=== PATIENT | female | born 1975 | race Two or more races ===

== ENCOUNTER 2017-04-30 03:51 | Emergency (ER) | payer MEDICAID ==
[~2017-04-30] VITALS: Ht 149.9 cm; Wt 85.7 kg
[2017-04-30 03:58] VITALS: BP 135/78
== END 2017-04-30 04:54 | disposition home or self-care (01) ==
LOC: ER 03:56
DX: R10.2 Pelvic and perineal pain (principal)

== ENCOUNTER 2018-03-16 17:59 | Inpatient (IN) | payer MEDICAID ==
[~2018-03-16] VITALS: Ht 152.4 cm; Wt 106.3 kg
[2018-03-16] MEDS ORDERED: SODIUM CHLORIDE 0.9% 500 ML IVB ONE (18:39)
[2018-03-16] MEDS ORDERED: KETOROLAC TROMETH 30 MG/ML 1ML VIAL IV ONE (18:45)
[2018-03-16 19:18] LABS: Basophils # (auto) 0 uL; Basophils % (auto) 0.3 % (0.0-2.0); Eosinophils # (auto) 0.1 uL; Mean Corpuscular Hgb Conc. 33.2 g/dL (32.0-36.0); White Blood Cell 10.7 10^3/uL (4.4-10.8)
[2018-03-16 19:20] LABS: Eosinophils % (auto) 1.3 % (0.0-7.0); Hematocrit 39.1 % (36.0-46.0); Lymphocytes # (auto) 1.3 uL; Lymphocytes % (auto) 12.1 % (10.0-50.0); Mean Corpuscular Hemoglobin 25.5 pg (28.0-32.0); Mean Corpuscular Volume 76.7 fL (80.0-100.0); Monocytes # (auto) 0.7 uL; Monocytes % (auto) 6.5 % (0.0-12.0); Neutrophils # (auto) 8.5 uL; Neutrophils % (auto) 79.8 % (37.0-80.0); Platelet Count (auto) 363 10^3/uL (140-450); Red Cell Distribution Width 18.2 % (11.8-14.3)
[2018-03-16 19:40] LABS: BUN/Creatinine Ratio 15.5; Bilirubin, Total 0.3 mg/dL (0.2-1.0); Calcium 9.3 mg/dL (8.5-10.1); Total Protein 7.9 g/dL (6.4-8.2)
[2018-03-16] MEDS ORDERED: NALBUPHINE HCL 10 MG/1ml INJECTION IV ONE (22:00)
[2018-03-16] MEDS ORDERED: ONDANSETRON HCL 4 MG/2 ML VIAL IV ONE (22:00)
[2018-03-16] MEDS ORDERED: ACETAMINOPHEN 325 MG TAB PO PRN (23:15)
[2018-03-16] MEDS ORDERED: PANTOPRAZOLE 40 MG/10 ML VIAL IV ONE (23:15)
[2018-03-16] MEDS ORDERED: cefTRIAXone 1GM/10ml IVPUSH 10 ML IV ONE (23:15)
[2018-03-17] VITALS (8 sets, daily range): BP systolic 133–161; BP diastolic 69–95
[2018-03-17] MEDS: HYDROcodone-ACET 5/325MG TAB PO PRN ×2 (01:00→08:29)
[2018-03-17] MEDS: ONDANSETRON HCL 4 MG/2 ML VIAL IV PRN ×2 (01:10→02:31)
[2018-03-17 01:49] LABS: Urine Bacteria FEW /hpf (None Seen); Urine Blood 3+ /uL (Negative); Urine Mucus FEW (None Seen); Urine Specific Gravity 1.019 (1.001-1.035); Urine WBC 23 /hpf (0 - 5)
[2018-03-17] MEDS: SODIUM CHLORIDE 0.9% 1,000 ML IV SCH ×2 (02:30→15:51)
[2018-03-17] MEDS: NALBUPHINE HCL 10 MG/1ml INJECTION IV PRN ×4 (02:31→22:51)
[2018-03-17 05:18] LABS: Basophils # (auto) 0 uL; Basophils % (auto) 0.3 % (0.0-2.0); Hemoglobin 12.1 g/dL (12.2-16.2); Monocytes # (auto) 0.6 uL; Neutrophils # (auto) 6.8 uL
[2018-03-17 05:21] LABS: Eosinophils # (auto) 0.2 uL; Eosinophils % (auto) 1.7 % (0.0-7.0); Hematocrit 36.1 % (36.0-46.0); Lymphocytes # (auto) 1.5 uL; Lymphocytes % (auto) 16.3 % (10.0-50.0); Mean Corpuscular Hemoglobin 25.7 pg (28.0-32.0); Mean Corpuscular Hgb Conc. 33.5 g/dL (32.0-36.0); Mean Corpuscular Volume 76.8 fL (80.0-100.0); Monocytes % (auto) 6.7 % (0.0-12.0); Platelet Count (auto) 298 10^3/uL (140-450); Red Blood Cells 4.69 10^6/uL (4.0-5.20); Red Cell Distribution Width 18.1 % (11.8-14.3)
[2018-03-17 05:44] LABS: Calcium 8.1 mg/dL (8.5-10.1); Potassium 3.8 mmol/L (3.5-5.1)
[2018-03-17 05:48] LABS: Albumin 2.6 g/dL (3.4-5.0); BUN/Creatinine Ratio 18.2
[2018-03-17 05:50] LABS: Bilirubin, Total 0.7 mg/dL (0.2-1.0); Total Protein 6.6 g/dL (6.4-8.2)
[2018-03-17] MEDS: cefTRIAXone 1GM/10ml IVPUSH 10 ML IV SCH (08:30)
[2018-03-17] MEDS: PANTOPRAZOLE 40 MG/10 ML VIAL IV SCH (09:47)
[2018-03-17] MEDS ORDERED: GASTROGRAFIN 30 ML SOL ONE (13:53)
[2018-03-17] MEDS ORDERED: IOHEXOL 300 MG/ML 75ml BOTTLE IJ ONE (17:35)
[2018-03-18 05:00] VITALS: BP_SYST 108; BP_SYST 133; BP_DIAS 78; BP_DIAS 90
[2018-03-18 08:28] VITALS: BP 124/83
[2018-03-18] MEDS: SODIUM CHLORIDE 0.9% 1,000 ML IV SCH (09:18)
[2018-03-18] MEDS: PANTOPRAZOLE 40 MG/10 ML VIAL IV SCH (09:19)
[2018-03-18] MEDS: cefTRIAXone 1GM/10ml IVPUSH 10 ML IV SCH (09:19)
[2018-03-18] MEDS: NALBUPHINE HCL 10 MG/1ml INJECTION IV PRN ×2 (09:22→16:05)
[2018-03-18] MEDS ORDERED: metroNIDAZOLE 500 MG TAB PO ONE (11:00)
[2018-03-18 12:58] VITALS: BP 138/78
[2018-03-18] MEDS: CIPROFLOXACIN HCL 500 MG TAB PO SCH ×2 (13:31→22:09)
[2018-03-18 17:00] VITALS: BP 139/82
[2018-03-18] MEDS: HYDROcodone-ACET 5/325MG TAB PO PRN (20:16)
[2018-03-18 22:00] VITALS: BP 143/71
[2018-03-18] MEDS: TEMAZEPAM 15 MG CAP PO PRN (22:09)
[2018-03-18] MEDS: metroNIDAZOLE 500 MG TAB PO SCH (22:09)
[2018-03-19] MEDS: SODIUM CHLORIDE 0.9% 1,000 ML IV SCH ×2 (01:30→17:51)
[2018-03-19] MEDS: NALBUPHINE HCL 10 MG/1ml INJECTION IV PRN ×3 (04:33→21:25)
[2018-03-19 06:12] VITALS: BP 131/74
[2018-03-19] MEDS: metroNIDAZOLE 500 MG TAB PO SCH ×3 (06:36→21:35)
[2018-03-19 09:00] VITALS: BP 125/75
[2018-03-19] MEDS: PANTOPRAZOLE 40 MG/10 ML VIAL IV SCH (09:13)
[2018-03-19] MEDS: CIPROFLOXACIN HCL 500 MG TAB PO SCH ×2 (09:13→21:35)
[2018-03-19 13:00] VITALS: BP 130/85
[2018-03-19 17:15] VITALS: BP 136/86
[2018-03-19] MEDS: TEMAZEPAM 15 MG CAP PO PRN (21:44)
[2018-03-19 22:00] VITALS: BP 125/52
[2018-03-20] MEDS: NALBUPHINE HCL 10 MG/1ml INJECTION IV PRN (04:59)
[2018-03-20 05:00] VITALS: BP 115/82
[2018-03-20] MEDS: metroNIDAZOLE 500 MG TAB PO SCH (05:02)
[2018-03-20] MEDS ORDERED: IBUPROFEN 600 MG TAB PO PRN (07:30)
[2018-03-20 08:00] VITALS: BP 127/77
[2018-03-20 09:00] VITALS: BP 127/77
[2018-03-20] MEDS: CIPROFLOXACIN HCL 500 MG TAB PO SCH (09:56)
[2018-03-20] MEDS: PANTOPRAZOLE 40 MG/10 ML VIAL IV SCH (09:56)
[2018-03-20] MEDS: SODIUM CHLORIDE 0.9% 1,000 ML IV SCH (09:57)
[2018-03-20 11:30] VITALS: BP 137/83
== END 2018-03-20 12:25 | disposition home or self-care (01) | DRG 244 ==
LOC: ER 17:59 → WEST WING 18:00
PROVIDERS: ADMIT Nurse Practitioner; ATTEND Internal Medicine
DX: K57.92 Diverticulitis of intestine, part unspecified, without perforation or abscess without bleeding (principal); E44.1 Mild protein-calorie malnutrition; E66.01 Morbid (severe) obesity due to excess calories; R16.0 Hepatomegaly, not elsewhere classified; F17.210 Nicotine dependence, cigarettes, uncomplicated; Z68.42 Body mass index [BMI] 45.0-49.9, adult; Z83.3 Family history of diabetes mellitus; Z98.51 Tubal ligation status; Z90.49 Acquired absence of other specified parts of digestive tract
CPT/HCPCS: 36415; 74176; 74177; 76856; 80053; 81001; 82150; 83690; 85025; 87086; 96361; 96374; 96375; C9113; J2405; Q9967

== ENCOUNTER → 2020-06-25 | Emergency (ER) | payer SELFPAY ==
[~2020-06-25] VITALS: Ht 149.9 cm; Wt 98.4 kg
[~2020-06-25] MED LIST: BACITRACIN TOP OINT 1 UD PKG TOP ONE; LIDOCAINE 1% HCL (LOCAL ANESTH.) INJ 20ML MDV IJ ONE; TETANUS-DIPTH-ACEL PERTUSSIS 0.5ML SYR Tdap IM ONE
[2020-06-25 09:06] VITALS: BP 154/105
== END | disposition home or self-care (01) ==
LOC: ER 08:19
DX: S61.512A Laceration without foreign body of left wrist, initial encounter (principal); R20.0 Anesthesia of skin; F17.210 Nicotine dependence, cigarettes, uncomplicated; Y28.0XXA Contact with sharp glass, undetermined intent, initial encounter; Y93.E9 Activity, other interior property and clothing maintenance; Y92.89 Other specified places as the place of occurrence of the external cause; Y99.8 Other external cause status
CPT/HCPCS: 12002; 90471; 90715; 99283; J2001; 12032

== ENCOUNTER 2020-07-10 13:20 | Emergency (ER) | payer MEDICAID ==
[~2020-07-10] VITALS: Ht 149.9 cm; Wt 98.4 kg
[2020-07-10 13:35] VITALS: BP 175/85
== END 2020-07-10 15:59 | disposition home or self-care (01) ==
LOC: ER 13:20
DX: S21.012D Laceration without foreign body of left breast, subsequent encounter (principal); Z98.51 Tubal ligation status; X58.XXXD Exposure to other specified factors, subsequent encounter